=== PATIENT | male | born 1935 | race Caucasian/White ===

== ENCOUNTER → 2016-11-14 | Outpatient (CLI) | payer MEDICARE, OTHER ==
[~2016-11-14] MED LIST: ALLO300T2 PO; ALLP100T PO; ASP81CT PO; CALC-80 PO; CHLORTAB PO; CHOL400T29 PO; DIAZ10TA3 PO; DICY20TA10 PO; DIET75TA; DOCU100T7 PO; GFN600TCR PO; GLUC1TAB27 PO; HYDR-757 PO; HYDR118S PO; HYDR28.480 TP; LEVO25TA5 PO; MELA1TAB11 PO; MENT200L TP; METO-354 PO; MULT1CAP27 PO; NAPR550T PO; OMEG1CAP24 PO; OMEP-10 PO; OMEP20TA2 PO; PANT40TA PO; PRM25T PO; PROP1TAB77 PO; TRAM50TA2 PO; UBID100C8 PO; VITA1CAP59 PO; [UNRECOGNIZED DRUG - OTHER]; acetaminophen 500mg PO
[2016-11-14 14:43] LABS: BASOPHILS # (AUTO) 0.1 10^3/uL (0.0-0.1); BASOPHILS % (AUTO) 3 % (0-10); EOSINOPHILS # (AUTO) 0.2 10^3/uL (0.0-0.3); EOSINOPHILS % (AUTO) 4 % (0-10); LYMPHOCYTES # (AUTO) 1.4 X 10^3 (1.0-4.0); LYMPHOCYTES % (AUTO) 36 % (12-44); MEAN CORPUSCULAR HEMOGLOBIN 28 PG (25-34); MEAN CORPUSCULAR HGB CONC 32 G/DL (32-36); MEAN CORPUSCULAR VOLUME 87 FL (80-99); MEAN PLATELET VOLUME 11.8 FL (7.4-10.4); MONOCYTES # (AUTO) 0.6 X 10^3 (0.0-1.0); MONOCYTES % (AUTO) 16 % (0-12); NEUTROPHILS # (AUTO) 1.6 X 10^3 (1.8-7.8); NEUTROPHILS % (AUTO) 41 % (42-75); PLATELET COUNT 119 10^3/uL (130-400); RED BLOOD COUNT 5.09 10^6/uL (4.35-5.85); RED CELL DISTRIBUTION WIDTH 16.7 % (10.0-14.5); WHITE BLOOD COUNT 3.9 10^3/uL (4.3-11.0)
[2016-11-14 15:05] LABS: ALBUMIN 4.2 G/DL (3.2-4.5); BILIRUBIN,TOTAL 0.9 MG/DL (0.1-1.0); CALCIUM 9.2 MG/DL (8.5-10.1); CREATININE SERUM 1.28 MG/DL (0.60-1.30); POTASSIUM 4.1 MMOL/L (3.6-5.0); TOTAL PROTEIN 6.8 G/DL (6.4-8.2)
[2016-11-14 15:24] LABS: THYROID STIMULATING HORMONE 3.04 UIU/ML (0.35-4.94)
== END ==
LOC: LAB 14:21
DX: Z00.00 Encounter for general adult medical examination without abnormal findings (principal); E03.9 Hypothyroidism, unspecified; E78.1 Pure hyperglyceridemia
CPT/HCPCS: 36415; 80053; 80061; 84443; 85025

== ENCOUNTER → 2018-07-26 | Outpatient (CLI) | payer MEDICARE, OTHER ==
[~2018-07-26] MED LIST changes: +HYDR-4226 PO; -HYDR-757 PO; +NAPR-1070 PO; -NAPR550T PO; +PANT40SU PO
--- NOTE | 2018-07-26 14:56 | Diagnostic Imaging Report ---
PROCEDURE: CT abdomen and pelvis without contrast. TECHNIQUE: Multiple contiguous axial images were obtained through the abdomen and pelvis without the use of intravenous contrast. INDICATION: Left lower quadrant pain. COMPARISON: Correlation is made with prior CT from 02/21/2013. FINDINGS: The lung bases are clear apart from calcified granuloma in the left lower lobe posteriorly. No discrete liver mass is identified. The gallbladder is unremarkable. No biliary ductal dilatation is seen. The pancreas and spleen are unremarkable. No adrenal mass is detected. Low-attenuation lesions in both kidneys are seen, suggestive of cysts. The larger lesion in the lower pole of the left kidney has significantly decreased in size since CT from 2012. There is a slightly hyperdense cortical lesion in the left kidney lower pole medially measuring approximately 12 mm. This was not seen on prior exam. This could represent a small hemorrhagic cyst, but solid lesion cannot be entirely excluded. No calculi or hydronephrosis is identified. The aorta is calcified but nonaneurysmal. The colon does demonstrate a large amount of stool consistent with constipation. There is diverticula of the sigmoid but no evidence of acute diverticulitis. Small bowel is nondilated. There is no ascites. Unopacified urinary bladder does demonstrate some wall thickening, particularly on the right side of the urinary bladder near the dome. A bladder mass cannot be entirely excluded. Prostate is unremarkable. No pelvic lymphadenopathy is seen. IMPRESSION: 1. Features suggestive of constipation. 2. Bilateral renal cysts. There is also a 12 mm hyperdensity in the left kidney, indeterminate between a hemorrhagic versus a solid renal lesion. Continued followup is recommended to confirm stability. 3. Wall thickening of the urinary bladder on the right side. Bladder neoplasm cannot be excluded, and cystoscopy would be useful for further evaluation. 4. Uncomplicated sigmoid diverticulosis. Dictated by: Dictated on workstation # [id number]
== END ==
LOC: RAD 14:12
PROVIDERS: ATTEND Internal Medicine
DX: N28.1 Cyst of kidney, acquired (principal); N32.89 Other specified disorders of bladder; K57.30 Diverticulosis of large intestine without perforation or abscess without bleeding
CPT/HCPCS: 74176

== ENCOUNTER 2018-08-19 13:12 | Outpatient (RCR) | payer MEDICARE, OTHER ==
[2018-07-28 17:12] LABS: BASOPHILS # (AUTO) 0.1 10^3/uL (0.0-0.1); BASOPHILS % (AUTO) 1 % (0-10); EOSINOPHILS # (AUTO) 0.2 10^3/uL (0.0-0.3); EOSINOPHILS % (AUTO) 2 % (0-10); HEMATOCRIT 33 % (40-54); LYMPHOCYTES # (AUTO) 1.7 X 10^3 (1.0-4.0); LYMPHOCYTES % (AUTO) 23 % (12-44); MEAN CORPUSCULAR HEMOGLOBIN 29 PG (25-34); MEAN CORPUSCULAR HGB CONC 30 G/DL (32-36); MEAN CORPUSCULAR VOLUME 96 FL (80-99); MEAN PLATELET VOLUME 12.3 FL (7.4-10.4); MONOCYTES # (AUTO) 0.2 X 10^3 (0.0-1.0); MONOCYTES % (AUTO) 2 % (0-12); NEUTROPHILS # (AUTO) 5.3 X 10^3 (1.8-7.8); NEUTROPHILS % (AUTO) 72 % (42-75); PLATELET COUNT 120 10^3/uL (130-400); RED CELL DISTRIBUTION WIDTH 16.2 % (10.0-14.5); WHITE BLOOD COUNT 7.3 10^3/uL (4.3-11.0)
[2018-07-28 17:36] LABS: ALANINE AMINOTRANSFERASE 11 U/L (0-55); ALBUMIN 4.2 GM/DL (3.2-4.5); ALKALINE PHOSPHATASE 74 U/L (40-136); BUN/CREATININE RATIO 17; CARBON DIOXIDE 23 MMOL/L (21-32); CHLORIDE 108 MMOL/L (98-107); CREATININE SERUM 1.14 MG/DL (0.60-1.30); GFR ESTIMATED > 60; GLUCOSE 105 MG/DL (70-105); POTASSIUM 3.5 MMOL/L (3.6-5.0); SODIUM 141 MMOL/L (135-145); TOTAL PROTEIN 6.8 GM/DL (6.4-8.2)
[2018-07-28 19:05] LABS: BAND NEUTROPHILS 0 %; BASOPHILS % (MANUAL) 0 %; EOSINOPHILS % (MANUAL) 1 %; LYMPHOCYTES % (MANUAL) 21 %; MONOCYTES % (MANUAL) 2 %; NEUTROPHILS % (MANUAL) 76 %
[2018-07-28 19:06] LABS: HYPOCHROMASIA MODERATE; POIKILOCYTOSIS SLIGHT; STOMATOCYTES SLIGHT
== END 2018-10-26 | disposition home or self-care (01) ==
LOC: ONC 13:12
PROVIDERS: ATTEND Internal Medicine Hematology & Oncology
DX: D64.9 Anemia, unspecified (principal); D69.6 Thrombocytopenia, unspecified; N28.9 Disorder of kidney and ureter, unspecified; N32.9 Bladder disorder, unspecified; S22.080A Wedge compression fracture of T11-T12 vertebra, initial encounter for closed fracture; M43.16 Spondylolisthesis, lumbar region; M47.816 Spondylosis without myelopathy or radiculopathy, lumbar region; W19.XXXA Unspecified fall, initial encounter
CPT/HCPCS: 72100; 80053; 82607; 82728; 82746; 83540; 85007; 85025; 85027; 88184; 88185; 88368; 88369; 88377; 99213; 99214

== ENCOUNTER → 2018-08-19 | Outpatient (CLI) | payer MEDICARE, OTHER ==
--- NOTE | 2018-08-19 21:15 | Diagnostic Imaging Report ---
INDICATION: Back pain following a fall sustained 3 weeks ago. No previous for direct comparison; however, the study correlated with abdominopelvic CT that includes sagittal and coronal reconstructions that dated 07/26/2008. FINDINGS: Mid third vertebral body compression fracture at T12 showed no progression from previous CT. Lumbar statures are stable and within normal limits. Grade 1 degenerative retrolistheses of L1 on L2, L2 on L3 and L3 on L4 stable from prior. There is pancolonic constipation similar in magnitude to what is present on the earlier CT. IMPRESSION: Stable compression of the central T12 vertebral body. No lumbar fracture. Stable multilevel grade 1 degenerative listhesis, spondylosis and facet arthrosis with chronic or recurrent colonic constipation. Dictated by: Dictated on workstation # [id number]
== END ==
LOC: RAD 14:16
PROVIDERS: ATTEND Internal Medicine
DX: S22.080A Wedge compression fracture of T11-T12 vertebra, initial encounter for closed fracture (principal); M43.16 Spondylolisthesis, lumbar region; M47.816 Spondylosis without myelopathy or radiculopathy, lumbar region; W19.XXXA Unspecified fall, initial encounter
CPT/HCPCS: 72100

== ENCOUNTER 2019-09-01 20:14 | Inpatient (IN) | payer MEDICARE, OTHER ==
[~2019-09-01] VITALS: Ht 180.3 cm; Wt 56.6 kg
[2019-09-01] MEDS ORDERED: LACTATED RINGERS 1,000 ML IV ONE ×2 (20:55→21:17)
[2019-09-01 21:25] LABS: HEMATOCRIT 33 % (40-54); MEAN CORPUSCULAR HEMOGLOBIN 37 PG (25-34); MEAN CORPUSCULAR HGB CONC 31 G/DL (32-36); MEAN CORPUSCULAR VOLUME 120 FL (80-99); MEAN PLATELET VOLUME 11.9 FL (7.4-10.4); RED CELL DISTRIBUTION WIDTH 18.6 % (10.0-14.5)
[2019-09-01 21:28] LABS: PLATELET COUNT 19 10^3/uL (130-400); WHITE BLOOD COUNT 64.2 10^3/uL (4.3-11.0)
--- NOTE | 2019-09-01 21:29 | ED General ---
General Chief Complaint: Trauma-Non Activation Stated Complaint: FELL/BACK PAIN Source of Information: Patient, Family (daughter) Exam Limitations: Other (poor historian) (BILLIE STAPLETON) History of Present Illness Date Seen by Provider: Sep 01, 2019 Time Seen by Provider: 20:20 Initial Comments pt is an 84 y/o male who presents to the ED S/P fall some time today. He was found by daughter on the floor in his trailer where he lives. He says he lost his balance while reaching over his chair for the light switch, causing him to fall. Denies LOC or hitting his head, or any other injury from the fall. He does complain of mild back pain but does report hx of chronic back pain; pt cannot seem to tell whether current back pain is different from his chronic back pain. Daughter gave him Tylenol PANTS BUSHELER (~1900) for back pain. Pt denies CP, lightheadedness, cough, UTI sx, any new incontinence, or neurological sx. Per daughter, pt's BP usually runs low in the 100s-90s/70s-60s. Pt states he does not take his medicine regularly, only takes them when he "needs to". He is not on any anticoagulants. Pt lives alone in his trailer and per daughter, he is not able to take care of himself well, is not able to shower by himself, does not keep hydrated, and does not eat well. Per daughter, pt has been showing progressive sx of dementia over the past few years and has recently been having hallucinations as well; as such, pt is a poor historian. Timing/Duration: Other ("Few hrs") Modifying Factors: improves with Other (back pain is better with rest) Associated Systoms: No Chest Pain, No Cough, No Diaphoresis, No Fever/Chills, No Nausea/Vomiting, No Shortness of Air, No Syncope; Weakness (BILLIE STAPLETON) Allergies and Home Medications Allergies Coded Allergies: propoxyphene (Unverified Adverse Reaction, Intermediate, N/V, DIZZINESS, 03/17/10) Home Medications Acetaminophen 500 Mg Tablet, 500-1,000 MG PO Q4H PRN for PAIN-MILD (1-4), (Reported) Melatonin 5 Mg Tablet, 5 MG PO HS, (Reported) Tamsulosin HCl 0.4 Mg Cap, 0.4 MG PO HS, (Reported) LAST FILLED #30 05-24-19 Patient Home Medication List Home Medication List Reviewed: Yes (DILLAN MURGUIA MD) Review of Systems Review of Systems Constitutional: No chills, No diaphoresis, No fever; weakness Respiratory: No cough, No dyspnea on exertion Cardiovascular: No chest pain, No palpitations Gastrointestinal: No abdominal pain, No constipation; diarrhea (chronic); No nausea, No vomiting Genitourinary: No dysuria, No frequency; incontinence (intermittent) Musculoskeletal: back pain Skin: dryness; No rash (BILLIE STAPLETON) All Other Systems Reviewed Negative Unless Noted: Yes (DILLAN MURGUIA MD) Past Fcqqexa-Zumzro-Sdfymc Hx Past Med/Social Hx: Reviewed Nursing Past Med/Soc Hx (DILLAN MURGUIA MD) Patient Social History Recent Foreign Travel: No (N) Contact w/Someone Who Travel: No Recent Hopitalizations: No (BILLIE STAPLETON) Immunizations Up To Date Tetanus Booster (TDap): Unknown (BILLIE STAPLETON [employer]) Past Medical History Surgeries: Yes (HERNIA, polyp removed from escophagus) Respiratory: No Currently Using CPAP: No Currently Using BIPAP: No Cardiac: Yes (leaky valve) Coronary Artery Disease, High Cholesterol Neurological: No Reproductive Disorders: No Sexually Transmitted Disease: No HIV/AIDS: No Genitourinary: No Gastrointestinal: Yes ( diverticulosis, hiatal hernia) Musculoskeletal: Yes (gout) Gout Endocrine: No Hypothyroidsim HEENT: Yes Cataract Hearing Impairment: Hard of Hearing Cancer: No Psychosocial: No Integumentary: No Blood Disorders: No (BILLIE STAPLETON [facility]) Family Medical History Reviewed Nursing Family Hx (DILLAN MURGUIA MD) No Pertinent Family Hx (BILLIE STAPLETON) Physical Exam-Suspected Sepsis Physical Exam Vital Signs Vital Signs - First Documented 09/02/19 09/02/19 09/02/19 01:00 01:03 01:30 Temp 36.4 Pulse 62 Resp 16 B/P (MAP) 107/55 (72) Pulse Ox 100 O2 Delivery Room Air O2 Flow Rate 100.00 (DILLAN MURGUIA MD) Vital Signs Capillary Refill : (BILLIE STAPLETON [facility]) Height, Weight, BMI Height: 6'0.00" Weight: 190lbs. 9.0oz. 86.622014pa; 24.6 BMI Method:Stated General Appearance: No Apparent Distress, WD/WN, Thin, Other (temporal muscle wasting, discheveled, greasy hair, pleasent) HEENT: PERRL/EOMI, TMs Normal, Normal ENT Inspection, Pharynx Normal Neck: Normal Inspection, Non Tender Respiratory: Chest Non Tender, Lungs Clear, Normal Breath Sounds, No Accessory Muscle Use, No Respiratory Distress Cardiovascular: Regular Rate, Rhythm, No Edema, No Gallop, No JVD, No Murmur Gastrointestinal: Non Tender, Soft Back: No CVA Tenderness, Other (mild TTP of SP of lower lumbar vertabrae) Extremity: Normal Capillary Refill, Non Tender, No Calf Tenderness, No Pedal Edema, Other (chronic skin discolouration to bilateral feet, evidence of onychomycosis, and scaling skin on forefoot and in between toes) Neurologic/Psychiatric: Alert, Oriented x3 Lymphatic: No Adenopathy (BILLIE STAPLETON [facility]) General Appearance: No Apparent Distress, Chronically ill, Thin Respiratory: Lungs Clear, Normal Breath Sounds Cardiovascular: Regular Rate, Rhythm, No Murmur Gastrointestinal: Normal Bowel Sounds, Non Tender, Soft Back: No CVA Tenderness, No Vertebral Tenderness Extremity: Non Tender, No Calf Tenderness Neurologic/Psychiatric: Alert, Oriented x3 Skin: normal color, warm/dry (DILLAN MURGUIA MD) Focused Exam Lactate Level (DILLAN MURGUIA MD) Lactic Acid Level (DILLAN MURGUIA MD) Progress/Results/Core Measures Suspected Sepsis SIRS Temperature: Pulse: Respiratory Rate: Laboratory Tests 09/01/19 21:16: White Blood Count 64.2*H Blood Pressure / Mean: 09/01/19 21:16: Lactic Acid Level 3.98*H Laboratory Tests 09/01/19 21:16: Creatinine 3.23H, INR Comment 1.5H, Platelet Count 19*L, Total Bilirubin 0.6 (BILLIE STAPLETON [facility]) Results/Orders Lab Results (DILLAN MURGUIA MD) Micro Results (DILLAN MURGUIA MD) My Orders Orders - DILLAN MURGUIA MD [facility] Tech Ed (09/01/19 ) (DILLAN MURGUIA MD) Medications Given in ED (DILLAN MURGUIA MD) Vital Signs/I&O (DILLAN MURGUIA MD) Vital Signs/I&O [facility]ill : [facility] Progress Note : Time: 20:22 Progress Note Seen and evaluated. Noted to have low BP in 100-90s/50-40s with low O2 sat. O2 stat maintained on NC, ordered 2L of LR, sepsis work-up. @2127: Was notified by lab that pt's WBC was 64.2 and plt 19. Per EMR. pt has seen Dr. Melvin back in 2019, and flow cytometry on blood sample showed small population of circulating myeloblasts with subtle atypical features of granulocytic precursors which did not exclude a primary marrow d/o. spoke to daughter regarding further f/u w/ Dr. Melvin; she states her dad decided not to f/u for a Bone marrow Bx. Daughter reports hx of leukemia in paternal grandfather. [facility] Progress Note : Progress Note Have seen and evaluated the patient and agree with above except as indicated. I have directed the plan of care. Patient is here with increasing weakness. White count grossly elevated. We will initiate sepsis workup plus CT of the head. Does have history of abnormal cells last year that was not followed up on. Patient has long history of not following up. LR 2 L bolus ordered which exceeds 30 mL/kg IV. He did have initial hypotension that has not persisted. We are pending UA. 2310: UA obtained and is pending. 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 Formal path review has been ordered to determine type. All findings concerns were discussed with the patient and family. I did inform the family of the severity of the illness. Patient to be admitted. Pending UA and determination of need for antibiotics. Monitor patient. 2340: UTI noted that is nitrite positive. Rocephin 1 g IV ordered. I did discuss the case with Dr. Coleman, on-call for [facility]. She accepts patient for admission, inpatient status. We will go to cardiac step down. Patient's blood pressure is improved nicely with IV fluids. 0005: I have discussed at length with the patient and family regarding findings and concerns and he agrees to admission. I attest to focused exam at this time. Blood pressure 100 over 60s systolic and patient is mentating better. O2 sat 100% on room air. (DILLAN MURGUIA MD) ECG Initial ECG Impression Date: Sep 01, 2019 Initial ECG Impression Time: 22:37 Initial ECG Rate: 64 Comment Multiple attempts to get EKG without significant artifact. Patient does have artifact on this EKG. Computer read shows atrial fibrillation although I think there is P waves noted in the lateral leads and this is sinus with low voltage P waves. Leftward axis. No evidence of ST elevation WI. Similar to previous of 01/10/17. Interpreted by me. (DILLAN MURGUIA MD) Diagnostic Imaging Diagonstic Imaging: Xray, CT Plain Films/CT/US/NM/MRI: chest, c-spine, head Comments [facility]. [place], [place] NAME: JOSHUA HARVEY [facility] REC#: [id number] PT STATUS: REG ER : 1935 PHYSICIAN: DILLAN MURGUIA MD ADMIT DATE: 09/01/19/ER Date of Exam:09/01/19 CT HEAD/CERVICAL SPINE WO PROCEDURE: CT head and CT cervical spine without contrast. TECHNIQUE: Multiple contiguous axial images were obtained through the brain and cervical spine without the use of intravenous contrast. Sagittal and coronal reformations through the cervical spine were then performed. Auto Exposure Controls were utilized during the CT exam to meet ALARA standards for radiation dose reduction. INDICATION: Fall with head and neck injury CT HEAD: CT images of the head were obtained. FINDINGS: Ventricles and sulci are within normal limits for size. There is no intracranial hemorrhage identified. There is no abnormal mass effect or shift of midline structures. IMPRESSION: Unremarkable CT of the head. CT cervical: There is diffuse cervical disc space narrowing with endplate spurring. No acute fracture is identified. There is no evidence of paraspinous hematoma. There is atherosclerotic calcification in the region of distal left vertebral artery and both internal carotid arteries. There is subcutaneous gas within the anterior chest wall of uncertain significance. IMPRESSION: No CT evidence of acute cervical spinal abnormality. Small amount of subcutaneous gas appear to be present within the visualized anterior chest wall just above the clavicles. Clinical correlation would be of use. Dictated on workstation # [id number] Dict: 09/01/192213 Trans: 09/01/192220 RIO [id number] Interpreted by: CARMELA HEWITT MD Electronically signed by: [facility] [place], [place] NAME: JOSHUA HARVEY [facility] REC#: [id number] PT STATUS: REG ER : 1935 PHYSICIAN: DILLAN MURGUIA MD ADMIT DATE: 09/01/19/ER Date of Exam:09/01/19 CHEST 1 VIEW, AP/PA ONLY INDICATION: Hypotension and fall Upright portable AP view of the chest is obtained. Comparison is made study of 01/10/2017. There is air trapping bilaterally. No pneumothorax or consolidation is identified. There may be slight right perihilar atelectasis. IMPRESSION: Background emphysema with slight right perihilar atelectasis. Dictated by: Dictated on workstation # [id number] Dict: 09/01/192215 Trans: 09/01/192226 RIO [id number] Interpreted by: CARMELA HEWITT MD Electronically signed by: CARMELA HEWITT MD 09/01/192226 [facility] Reviewed: Reviewed by Me (DILLAN MURGUIA MD) Departure Communication (Admissions) Time/Spoke to Admitting Phy: 23:40 (DILLAN MURGUIA MD) Impression Primary Impression: Severe sepsis Additional Impressions: UTI (urinary tract infection) Qualified Codes: N30.00 - Acute cystitis without hematuria Acute renal failure Qualified Codes: N17.9 - Acute kidney failure, unspecified Leukocytosis Qualified Codes: D72.829 - Elevated white blood cell count, unspecified Thrombocytopenia Disposition: 09 ADMITTED INPATIENT Condition: Stable Admissions Decision to Admit Reason: Admit from ER (General) Decision to Admit/Date: Sep 01, 2019 Time/Decision to Admit Time: 23:40 (DILLAN MURGUIA MD) Departure-Patient Inst. Referrals: YANICK AGEE MD (PCP/Family) Primary Care Physician BILLIE STAPLETON [facility] Sep 01, 2019 21:29 DILLAN MURGUIA MD Sep 01, 2019 23:18
[2019-09-01 21:38] LABS: INR 1.5 (0.8-1.4); PROTHROMBIN TIME PATIENT 18.3 SEC (12.2-14.7)
[2019-09-01 21:46] LABS: BILIRUBIN,TOTAL 0.6 MG/DL (0.1-1.0); CALCIUM 8.8 MG/DL (8.5-10.1); CREATININE SERUM 3.23 MG/DL (0.60-1.30); POTASSIUM 5.6 MMOL/L (3.6-5.0); TOTAL PROTEIN 6.5 GM/DL (6.4-8.2)
--- NOTE | 2019-09-01 22:21 | Diagnostic Imaging Report ---
PROCEDURE: CT head and CT cervical spine without contrast. TECHNIQUE: Multiple contiguous axial images were obtained through the brain and cervical spine without the use of intravenous contrast. Sagittal and coronal reformations through the cervical spine were then performed. Auto Exposure Controls were utilized during the CT exam to meet ALARA standards for radiation dose reduction. INDICATION: Fall with head and neck injury CT HEAD: CT images of the head were obtained. FINDINGS: Ventricles and sulci are within normal limits for size. There is no intracranial hemorrhage identified. There is no abnormal mass effect or shift of midline structures. IMPRESSION: Unremarkable CT of the head. CT cervical: There is diffuse cervical disc space narrowing with endplate spurring. No acute fracture is identified. There is no evidence of paraspinous hematoma. There is atherosclerotic calcification in the region of distal left vertebral artery and both internal carotid arteries. There is subcutaneous gas within the anterior chest wall of uncertain significance. IMPRESSION: No CT evidence of acute cervical spinal abnormality. Small amount of subcutaneous gas appear to be present within the visualized anterior chest wall just above the clavicles. Clinical correlation would be of use. Dictated by: Dictated on workstation # [id number]
[2019-09-01 22:23] LABS: BAND NEUTROPHILS 8 %; METAMYELOCYTES % 4 %; MONOCYTES % (MANUAL) 16 %; MYELOCYTES % 5 %; NEUTROPHILS % (MANUAL) 59 %
[2019-09-01 22:24] LABS: ANISOCYTOSIS MODERATE; ATYPICAL LYMPHOCYTES 1 %; BLAST CELLS 3 %; MICROCYTOSIS SLIGHT; POIKILOCYTOSIS SLIGHT; POLYCHROMASIA SLIGHT; PROMYELOCYTES % 4 %; SPHEROCYTES SLIGHT; TOXIC GRANULATION/VACUOLAZATIO 3+
--- NOTE | 2019-09-01 22:26 | Diagnostic Imaging Report ---
INDICATION: Hypotension and fall Upright portable AP view of the chest is obtained. Comparison is made study of 01/10/2017. There is air trapping bilaterally. No pneumothorax or consolidation is identified. There may be slight right perihilar atelectasis. IMPRESSION: Background emphysema with slight right perihilar atelectasis. Dictated by: Dictated on workstation # [id number]
[2019-09-01 22:45] LABS: ABSOLUTE RETIC # 58 10e9/L (24-90); RETICULOCYTE % 2.15 % (0.50-2.40)
[2019-09-01 23:13] LABS: BILIRUBIN,URINE NEGATIVE (NEGATIVE); CLARITY,URINE CLOUDY; COLOR,URINE YELLOW; GLUCOSE, URINE (UA) NEGATIVE (NEGATIVE); KETONES,URINE TRACE (NEGATIVE); LEUKOCYTE ESTERASE ,URINE 2+ (NEGATIVE); NITRITE,URINE POSITIVE (NEGATIVE); PH,URINE 5.5 (5-9); PROTEIN,URINE 2+ (NEGATIVE)
[2019-09-01 23:21] LABS: BACTERIA,URINE LARGE /HPF; SQUAMOUS EPITHELIAL CELL,UR RARE /HPF; WBC,URINE >100 /HPF
[2019-09-01] MEDS ORDERED: cefTRIAXone FOR IV USE 1,000 MG in WATER (STERILE) FOR INJECTION 10 ML IV ONE (23:30)
[2019-09-02] VITALS (15 sets, daily range): BP systolic 92–137; BP diastolic 45–94
[2019-09-02] MEDS ORDERED: LACTATED RINGERS 1,000 ML IV ONE (01:06)
[2019-09-02] MEDS: LACTATED RINGERS 1,000 ML IV SCH ×4 (01:10→21:48)
[2019-09-02 02:58] LABS: HEMATOCRIT 27 % (40-54); HEMOGLOBIN 8.1 G/DL (13.3-17.7); MEAN CORPUSCULAR HEMOGLOBIN 37 PG (25-34); MEAN CORPUSCULAR HGB CONC 31 G/DL (32-36); MEAN CORPUSCULAR VOLUME 120 FL (80-99); MEAN PLATELET VOLUME 10.9 FL (7.4-10.4); RED CELL DISTRIBUTION WIDTH 18.3 % (10.0-14.5)
[2019-09-02 03:00] LABS: PLATELET COUNT 13 10^3/uL (130-400); WHITE BLOOD COUNT 52.5 10^3/uL (4.3-11.0)
[2019-09-02 03:09] LABS: ALBUMIN 3.3 GM/DL (3.2-4.5); BILIRUBIN,TOTAL 0.4 MG/DL (0.1-1.0); CALCIUM 8.2 MG/DL (8.5-10.1); CREATININE SERUM 2.74 MG/DL (0.60-1.30); TOTAL PROTEIN 5.5 GM/DL (6.4-8.2)
[2019-09-02] MEDS ORDERED: ONDANSETRON 4 MG/2 ML (SDV) Z0FRAN IV PRN (04:00)
[2019-09-02] MEDS ORDERED: ACET-2267 PO (11:07)
[2019-09-02] MEDS ORDERED: MELA5TAB14 PO (11:07)
[2019-09-02] MEDS ORDERED: TMSL.4C PO (11:07)
--- NOTE | 2019-09-02 11:09 | NUR ---
SPOKE WITH THE PATIENT ABOUT HIS MEDICATIONS. HIS FAMILY STATES HE USES [facility]: [facility] FLOMAX 0.4MG DAILY #30 09-16-18 ALLOPURINOL 300MG DAILY #30 I LEFT THE FLOMAX ON THE MED REC AND NOTED THE PAST DUE FILL DATE BUT I REMOVED THE ALLOPURINOL SINCE IT IS SO PAST DUE. THE PHARMACIST AT [facility] SAYS HE COMES IN FREQUENTLY AND ASKS ABOUT SUPPLEMENTS BUT WHEN I ASKED HIM HE CAN NOT LIST ANY TO ME. HE STATES HE TAKES MELATONIN AT BEDTIME AND TYLENOL NEEDED. HE STATES THAT IS ALL HE TAKES ON A DAILY BASIS THAT HE CAN REMEMBER. I HAVE REMOVED ALL OTHER MEDICATIONS AT THIS TIME.
--- NOTE | 2019-09-02 13:09 | Physical Therapy Evaluation ---
PT Evaluation-General Medical Diagnosis Admission Date Sep 01, 2019 at 23:45 Medical Diagnosis: severe sepsis/UTI/leukocytosis/thrombocytopenia Onset Date: Sep 01, 2019 Therapy Diagnosis Therapy Diagnosis: debility/weakness Height/Weight Height (Feet): 6 Height (Inches): 0.00 Weight (Pounds): 190 Weight (Ounces): 9.0 Precautions Precautions/Isolations: Fall Prevention, Standard Precautions Weight Bear Status Right Lower Extremity: Right Weight Bearing/Tolerated Left Lower Extremity: Left Weight Bearing/Tolerated Referral Physician: Kit Reason for Referral: Evaluation/Treatment Medical History Pertinent Medical History: CAD, Hypothroidism Current History ER secondary to fall at home while reaching over chair for a light switch Reviewed History: Yes Social History Home: Single Level Current Living Status: Alone Entry Into Home: Stairs With Railing PT Steps Into Home: 3 Prior Prior Level of Function SCALE: Activities may be completed with or without assistive devices. 4-Lbyhyfwtah-feokhge completes the activity by him/herself with no assistance from a helper. 5-Set-up or Clean-up Assistance-helper sets up or cleans up; patient completes activity. [place] assists only prior to or following the activity. 4-Supervision or Touching Assistance-helper provides verbal cues and/or touching/steadying and/or contact guard assistance as patient completes activity. Assistance may be provided throughout the activity or intermittently. 3-Partial/Moderate Assistance-helper does LESS THAN HALF the effort. [place] lifts, holds or supports trunk or limbs, but provides less than half the effort. 2-Substantial/Maximal Assistance-helper does MORE THAN HALF the effort. [place] lifts or holds trunk or limbs and provides more than half the effort. 5-Xwanfcmzb-uokqtk does ALL the effort. Patient does none of the effort to complete the activity. Or, the assistance of 2 or more helpers is required for the patient to complete the activity. If activity was not attempted, code reason: 7-Patient Refused. 9-Not Applicable-not attempted and the patient did not perform the activity before the current illness, exacerbation or injury. 10-Not Attempted due to Environmental Limitations-(lack of equipment, weather restraints, etc.). 88-Not Attempted due to Medical Conditions or Safety Concerns. Bed Mobility: 6 Transfers (B,C,W/C): 6 Gait: 6 Stairs: 6 Indoor Mobility (Ambulation): Independent Stairs: Independent Prior Devices Use: None per family, unable to utilize AD due to clutter in home PT Evaluation-Current Subjective Patient agrees to PT. Family present. Pain Numeric Pain Scale: 0-No Pain Location: No Pain Reported Objective Patient Orientation: Confused Attachments: Rivera Catheter, IV ROM/Strength ROM Lower Extremities bilateral LE WFL Strength Lower Extremities 3+/5 grossly bilateral LE Integumentary/Posture Integumentary refer to nursing notes Bladder Incontinence: Rivera Cath Posture severely kyphotic Neuromuscular (Tone, Coordination, Reflexes) grossly intact Sensory Vision: Wears Glasses Hearing: Impaired Sensation Right Lower Extremit: Intact Sensation Left Lower Extremity: Intact Transfers Roll Left to Right (QC): 5 Sit to Lying (QC): 5 Lying to Sitting/Side of Bed(Q: 5 Sit to Stand (QC): 5 Chair/Qqx-ze-Znwsy Xfer(QC): 5 Gait Does the Patient Walk?: Yes Mode of Locomotion: Walk Anticipated Mode of Locomotion: Walk Walk 10 feet (QC): 5 Walk 50 ft with 2 Turns(QC): 5 Walk 150 ft (QC): 5 Distance: 500' Gait Assistive Device: FWW Comments/Gait Description fast pace, functional gait sequence Balance Sitting Static: Normal Sitting Dynamic: Normal Standing Static: Good Standing Dynamic: Good Assessment/Needs 84 y.o. male, will be seen short term by skilled PT to address functional strength and mobility to improve current LOF to safely return to home or care facility at maximum LOF. Rehab Potential: Fair PT [facility] Goals [facility] Goals PT Advisor Consultant Goals Time Frame: Sep 17, 2019 Roll Left & Right (QC): 6 Sit to Lying (QC): 6 Lying-Sitting on Side/Bed(QC): 6 Sit to Stand (QC): 6 Chair/Twj-lc-Qcmcy Xfer(QC): 6 Toilet Transfer (QC): 6 Car Transfer (QC): 6 Walk 10 feet (QC): 6 Walk 50ft with 2 Turns (QC): 6 Walk 150 ft (QC): 6 Walking 10ft on Uneven Surface: 6 1 Step (curb) (QC): 6 PT Plan Problem List Problem List: Activity Tolerance, Functional Strength, Safety, Balance, Gait, Transfer, Bed Mobility Treatment/Plan Treatment Plan: Continue Plan of Care Treatment Plan: Bed Mobility, Education, Functional Activity Gunjan, Functional Strength, Gait, Safety, Therapeutic Exercise, Transfers Treatment Duration: Sep 17, 2019 Frequency: 5 times per week Estimated Hrs Per Day: .25 hour per day Patient and/or Family Agrees t: Yes Safety Risks/Education Patient Education: Gait Training Teaching Recipient: Patient Teaching Methods: Demonstration, Discussion Response to Teaching: Verbalize Understanding, Return Demonstration, Reinforcement Needed Discharge Recommendations Therapy Discharge Recommendati: Other, See Comments (snf facility) Time/GCodes Time In: 1225 Time Out: 1246 Total Billed Treatment Time: 21 Total Billed Treatment 1 visit EVMod 21 min OG TRAN PT Sep 02, 2019 13:09
--- NOTE | 2019-09-02 15:24 | NUR ---
CM/SS visited with the patient for social service consult. The patient and his two daughters were present in the room. The patient was very pleasant to talk with. The patient did easily get off topic when talking. 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 The patient believes his home is good and he is doing well on his own. His daughters stated he is a hoarder, doesn't eat or drink, doesn't shower, and isolates himself. The patient is willing to go into a [facility] for a period of time. The patient was provided with a [facility] preference form. The patient and his daughters all decided on [facility]. CM/SS called and sent a referral to the facility. Awaiting approval and acceptance.
--- NOTE | 2019-09-02 18:14 | Consultation ---
History of Present Illness History of Present Illness Patient Consulted On(rosa isela/time) 09/02/19 18:06 Date Seen by Provider: Sep 02, 2019 Time Seen by Provider: 18:10 History of Present Illness Mr. Espinoza is an 84 yo male with gout, dyslipidemia and hypothyroidism who was admitted last night with urinary tract infection and lactic acidosis. He was found down in his trailer by one of his daughters for possibly up to two hours. Patient is a poor historian and the daughter that is with him today reports the patient's family has been suspicious of dementia for some years now. He was found to have severe leukocytosis (>60,000/ul), progressive anemia and severe thrombocytopenia (19,000/ul) on admission. Patient was actually seen in hematology clinic last July for severe rapid weight loss and mild blood abnormalities, but he was focused so much on his back pain at the time that he declined bone marrow biopsy, and he was lost to follow up. When speaking with the patient, he perseverates about his back problems although he denies any major issues with his back currently. Allergies and Home Medications Allergies Coded Allergies: acetaminophen (Unverified Adverse Reaction, Intermediate, N/V, DIZZINESS, 03/17/10) propoxyphene (Unverified Adverse Reaction, Intermediate, N/V, DIZZINESS, 03/17/10) Home Medications Acetaminophen 500 Mg Tablet, 500-1,000 MG PO Q4H PRN for PAIN-MILD (1-4), (Reported) Melatonin 5 Mg Tablet, 5 MG PO HS, (Reported) Tamsulosin HCl 0.4 Mg Cap, 0.4 MG PO HS, (Reported) LAST FILLED #30 05-24-19 Patient Home Medication List Home Medication List Reviewed: Yes Past Oneiezm-Fgnsbn-Cpwazh Hx Past Med/Social Hx: Reviewed Nursing Past Med/Soc Hx Patient Social History Alcohol Use: Denies Use Recreational Drug Use: No Smoking Status: Never a Smoker Recent Foreign Travel: No Contact w/Someone Who Travel: No Recent Infectious Disease Expo: No Recent Hopitalizations: No Immunizations Up To Date Tetanus Booster (TDap): Unknown Past Medical History Surgeries: Yes (HERNIA, polyp removed from escophagus) Respiratory: No Currently Using CPAP: No Currently Using BIPAP: No Cardiac: Yes (leaky valve) Coronary Artery Disease, High Cholesterol Neurological: No Reproductive Disorders: No Sexually Transmitted Disease: No HIV/AIDS: No Genitourinary: No Gastrointestinal: Yes ( diverticulosis, hiatal hernia) Musculoskeletal: Yes (gout) Gout Endocrine: No Hypothyroidsim HEENT: Yes Cataract Hearing Impairment: Hard of Hearing Cancer: No Psychosocial: No Integumentary: No Blood Disorders: No Family Medical History Reviewed Nursing Family Hx No Pertinent Family Hx Review of Systems-General ROS-Unable to Obtain: see HPI, obtained some history from daughter Musculoskeletal: back pain Physical Exam-General Problems Physical Exam Vital Signs Vital Signs - First Documented 09/01/19 09/02/19 20:30 01:30 Temp 36.4 Pulse 74 Resp 17 B/P (MAP) 99/54 (69) Pulse Ox 98 O2 Delivery Room Air O2 Flow Rate 100.00 Capillary Refill : Less Than 3 Seconds General Appearance: WD/WN, no apparent distress, cachetic Eyes: Bilateral Eye Normal Inspection, Bilateral Eye EOMI HEENT: normal ENT inspection Neck: normal inspection Respiratory: chest non-tender, lungs clear, normal breath sounds Cardiovascular: regular rate, rhythm, no edema, no murmur Gastrointestinal: normal bowel sounds, non tender, soft Extremities: normal inspection, no pedal edema Neurologic/Psychiatric: no motor/sensory deficits, alert, normal mood/affect, disoriented x 3 Skin: normal color, warm/dry Lymphatic: no adenopathy Assessment/Plan Assessment/Plan Admission Diagnosis/Plan 84 yo male admitted to the hospital for urosepsis. He was found to have severe leukocytosis and severe thrombocytopenia. When he was worked up in Jul 2018, peripheral flow cytometry was positive for 3% myeloblasts. Currently, peripheral smear shows a number of erythroid morphologic abnormalities with a number of normal appearing granulocytic myeloid precursors including 3% blasts. There is a high suspicion for malignancy, likely myeloproliferative disease, but leukemia cannot be ruled out. These abnormal findings, including leukocytosis and thrombocytopenia, can also be found with sepsis, so I would adequately treat the UTI prior to obtaining a bone marrow biopsy. Platelets should be transfused if they fall to less than 11,000/ul. Otherwise no acute intervention for now. We will continue to follow. Dr. Negro is covering for the weekend. Clinical Quality Measures DVT/VTE Risk/Contraindication: Risk Factor Score Per Nursin RFS Level Per Nursing on Admit: 4+=Very High OFELIA COX MD Sep 02, 2019 18:14
--- NOTE | 2019-09-02 20:27 | History & Physical-Hospitalist ---
History of Present Illness HPI/Chief Complaint 84 yo male found on floor by his daughter- probable not down for longer than 2 hours . Has been having increased weakness and weight loss for some time . Was dx with possible leukemia but refused BM BX . Has been taking silver colloid for years. Has zaldivar increased urinary hesitancy . At the time of my interview has rambling thoughts and speech more eccentric than confused and denies complaint Source: patient, family Exam Limitations: no limitations Date Seen 09/02/19 Time Seen by a Provider: 09:33 Attending Physician Elaine Coleman DO PCP Salvador Gonzalez MD Referring Physician Date of Admission Sep 01, 2019 at 23:45 Home Medications & Allergies Home Medications Reviewed patient Home Medication Reconciliation performed by pharmacy medication reconciliations boiler/chiller technician and/or nursing. Patients Allergies have been reviewed. Allergies Allergies Coded Allergies propoxyphene (Unverified Adverse Reaction, Intermediate, N/V, DIZZINESS, 03/17/10) Past Cdjmjxu-Pojxsw-Qhlwzz Hx Past Med/Social Hx: Reviewed Nursing Past Med/Soc Hx Patient Social History Marrital Status: Employed/Student: retired Alcohol Use: Denies Use Recreational Drug Use: No Smoking Status: Never a Smoker Recent Foreign Travel: No Contact w/other who traveled: No Recent Hopitalizations: No Recent Infectious Disease Expo: No Immunizations Up To Date Tetanus Booster (TDap): Unknown Past Medical History Currently Using CPAP: No Currently Using BIPAP: No Cardiac: Coronary Artery Disease, High Cholesterol Reproductive: No Sexually Transmitted Disease: No HIV/AIDS: No Musculoskeletal: Gout Endocrine: Hypothyroidsim HEENT: Cataract Hearing Impairment: Hard of Hearing History of Blood Disorders: No Family History Reviewed Nursing Family Hx No Pertinent Family Hx Review of Systems Constitutional: see HPI EENTM: hearing loss Respiratory: no symptoms reported Cardiovascular: no symptoms reported Gastrointestinal: no symptoms reported Genitourinary: no symptoms reported Musculoskeletal: muscle pain Skin: dryness Psychiatric/Neurological: No Symptoms Reported Physical Exam Physical Exam Vital Signs Vital Signs - First Documented 09/01/19 09/02/19 20:30 01:30 Temp 36.4 Pulse 74 Resp 17 B/P (MAP) 99/54 (69) Pulse Ox 98 O2 Delivery Room Air O2 Flow Rate 100.00 Capillary Refill : Less Than 3 Seconds Height, Weight, BMI Height: 6'0.00" Weight: 190lbs. 9.0oz. 86.986477lf; 17.07 BMI Method:Stated General Appearance: Chronically ill, Cachetic HEENT: Normal ENT Inspection Neck: Limited Range of Motion Respiratory: Chest Non Tender, Lungs Clear, Normal Breath Sounds, No Accessory Muscle Use, No Respiratory Distress Cardiovascular: Regular Rate, Rhythm, No Gallop, Systolic Murmur Gastrointestinal: Normal Bowel Sounds, Non Tender, Soft Back: No CVA Tenderness Extremity: No Pedal Edema, Other (,erythrederma of feet, Nail beds with leal deposition of nail beds) Neurologic/Psychiatric: Alert, No Motor/Sensory Deficits, Normal Mood/Affect Skin: Pallor Results Results/Procedures Labs Laboratory Tests 09/05/19 06:33 09/06/19 05:57 Patient resulted labs reviewed. 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
[2019-09-02] MEDS: cefTRIAXone 1,000 MG/SWFI 10 ML IV PUSH IV SCH ×2 (20:51)
[2019-09-03] VITALS: BP 101/42
[2019-09-03 03:33] LABS: HEMATOCRIT 28 % (40-54); HEMOGLOBIN 8.7 G/DL (13.3-17.7); MEAN CORPUSCULAR HEMOGLOBIN 37 PG (25-34); MEAN CORPUSCULAR HGB CONC 31 G/DL (32-36); MEAN CORPUSCULAR VOLUME 119 FL (80-99); MEAN PLATELET VOLUME 11.4 FL (7.4-10.4); RED CELL DISTRIBUTION WIDTH 17.8 % (10.0-14.5)
[2019-09-03 03:39] LABS: WHITE BLOOD COUNT 48.5 10^3/uL (4.3-11.0)
[2019-09-03 03:40] LABS: PLATELET COUNT 15 10^3/uL (130-400)
[2019-09-03 03:43] LABS: INR 1.3 (0.8-1.4); PROTHROMBIN TIME PATIENT 16.9 SEC (12.2-14.7)
[2019-09-03 03:58] LABS: ALBUMIN 3.2 GM/DL (3.2-4.5); BILIRUBIN,TOTAL 0.4 MG/DL (0.1-1.0); CALCIUM 7.8 MG/DL (8.5-10.1); CREATININE SERUM 1.98 MG/DL (0.60-1.30); POTASSIUM 4.6 MMOL/L (3.6-5.0); TOTAL PROTEIN 5.2 GM/DL (6.4-8.2)
[2019-09-03 04:00] VITALS: BP 110/28
[2019-09-03] MEDS: LACTATED RINGERS 1,000 ML IV SCH (04:28)
[2019-09-03 07:54] VITALS: BP_SYST 143; BP_SYST 89; BP_DIAS 62; BP_DIAS 85
--- NOTE | 2019-09-03 11:12 | Progress Note - Hospitalist ---
Subjective HPI/CC On Admission Date Seen by Provider: Sep 03, 2019 Time Seen by Provider: 10:00 84 yo male found on floor by his daughter- probable not down for longer than 2 hours . Has been having increased weakness and weight loss for some time . Was dx with possible leukemia but refused BM BX . Has been taking silver colloid for years. Has zaldivar increased urinary hesitancy . At the time of my interview has rambling thoughts and speech more eccentric than confused and denies complaint Subjective/Events-last exam Patient ate a good breakfast this morning is awake and without complaint. Platelet count is 15,000 with an elevated MCV. Review of Systems Neurological: Weakness Focused Exam Lactate Level Objective Exam Vital Signs Vital Signs Date Time Temp Pulse Resp B/P (MAP) Pulse Ox O2 Delivery O2 Flow Rate FiO2 09/05/19 09:00 97 Room Air 09/05/19 08:00 37.1 102 18 118/59 (78) 09/02/19 09:00 100.00 Capillary Refill : Less Than 3 Seconds General Appearance: Chronically ill HEENT: Other (Temporal wasting) Neck: Non Tender, Supple Respiratory: Chest Non Tender, Lungs Clear, Normal Breath Sounds, No Accessory Muscle Use, No Respiratory Distress Cardiovascular: Regular Rate, Rhythm, No Gallop, Normal Peripheral Pulses, Systolic Murmur Gastrointestinal: Normal Bowel Sounds, Non Tender, Soft Rectal: Deferred Extremity: No Pedal Edema, Other (Erythroderma) Neurologic/Psychiatric: Alert, No Motor/Sensory Deficits, Normal Mood/Affect, Disoriented Skin: Pallor Results/Procedures Lab Laboratory Tests 09/05/19 06:33 Patient resulted labs reviewed. 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 Appreciate Dr. Melvin's consultation. Will transfuse if platelets drop below 11,000 there is any evidence of bleeding. 2. Urinary tract infection on Rocephin day 3 will DC Rivera catheter and increase activity 3. Cachexia 4. Renal insufficiency-improving Clinical Quality Measures DVT/VTE Risk/Contraindication: Risk Factor Score Per Nursin RFS Level Per Nursing on Admit: 4+=Very High JESSICA PACK MD Sep 03, 2019 11:12
[2019-09-03 12:55] VITALS: BP 94/69
--- NOTE | 2019-09-03 14:06 | NUR ---
Patient transferred to [facility] per RECLINER WITH CHAIR EXIT ALARM ON accompanied by STAKE SETTERDERRICK KHAN. Patient and family notified and understand transfer. Personal belongings with patient. Report given toT RN FROM STAKE SETTERDERRICK KHAN-- . PER REPORT PT IS VERY IMPULSIVE AND GETS UP QUICKLY -- ALARMS WILL BE ON -- STAFF IS AWARE
--- NOTE | 2019-09-03 14:11 | NUR ---
PT TO ROOM 414 VIA WC ACCOMPANIED BY THIS RN. ALL PERSONAL BELONGINGS SENT DOWN WITH PT. REPORT GIVEN TO CLEMENTE MEZA.
[2019-09-03 16:00] VITALS: BP 126/78
[2019-09-03 20:00] VITALS: BP 119/70
[2019-09-03] MEDS ORDERED: cefTRIAXone 1,000 MG IV (ROCEPHIN) VIAL ONE (20:18)
[2019-09-03] MEDS ORDERED: WATER (STERILE) FOR INJECTION 10 ML ONE (20:18)
[2019-09-03] MEDS: MELATONIN 3 MG TABLET PO SCH ×2 (21:00→21:19)
[2019-09-03] MEDS: TAMSULOSIN 0.4 MG (FLOMAX) CAP PO SCH (21:19)
[2019-09-03] MEDS: cefTRIAXone 1,000 MG/SWFI 10 ML IV PUSH IV SCH ×2 (21:19)
[2019-09-04] VITALS: BP 111/60
[2019-09-04 04:00] VITALS: BP 112/56
[2019-09-04 05:40] LABS: HEMATOCRIT 29 % (40-54); HEMOGLOBIN 8.7 G/DL (13.3-17.7); MEAN CORPUSCULAR HEMOGLOBIN 36 PG (25-34); MEAN CORPUSCULAR HGB CONC 30 G/DL (32-36); MEAN CORPUSCULAR VOLUME 119 FL (80-99); RED CELL DISTRIBUTION WIDTH 17.9 % (10.0-14.5)
[2019-09-04 05:43] LABS: PLATELET COUNT 14 10^3/uL (130-400)
[2019-09-04 06:01] LABS: ALBUMIN 3.3 GM/DL (3.2-4.5); BILIRUBIN,TOTAL 0.4 MG/DL (0.1-1.0); CALCIUM 7.9 MG/DL (8.5-10.1); CREATININE SERUM 1.75 MG/DL (0.60-1.30); POTASSIUM 4.5 MMOL/L (3.6-5.0); TOTAL PROTEIN 5.6 GM/DL (6.4-8.2)
[2019-09-04 07:54] VITALS: BP 120/67
--- NOTE | 2019-09-04 11:26 | Progress Note - Hospitalist ---
Subjective HPI/CC On Admission Date Seen by Provider: Sep 04, 2019 Time Seen by Provider: 11:30 84 yo male found on floor by his daughter- probable not down for longer than 2 hours . Has been having increased weakness and weight loss for some time . Was dx with possible leukemia but refused BM BX . Has been taking silver colloid for years. Has zaldivar increased urinary hesitancy . At the time of my interview has rambling thoughts and speech more eccentric than confused and denies complaint Subjective/Events-last exam Patient is looking stronger, still has rambling thoughts, agrees today to have a bone marrow biopsy Review of Systems Neurological: Weakness Focused Exam Lactate Level Objective Exam Vital Signs Vital Signs Date Time Temp Pulse Resp B/P (MAP) Pulse Ox O2 Delivery O2 Flow Rate FiO2 09/05/19 09:00 97 Room Air 09/05/19 08:00 37.1 102 18 118/59 (78) 09/02/19 09:00 100.00 Capillary Refill : Less Than 3 Seconds General Appearance: Chronically ill Neck: Supple Respiratory: Lungs Clear, Normal Breath Sounds, No Accessory Muscle Use, No Respiratory Distress Cardiovascular: Regular Rate, Rhythm, No Edema, No Gallop, No JVD Gastrointestinal: Normal Bowel Sounds, No Organomegaly, Non Tender, Soft Rectal: Deferred Back: Normal Inspection, No CVA Tenderness, No Vertebral Tenderness Extremity: No Pedal Edema Results/Procedures Lab Laboratory Tests 09/05/19 06:33 Patient resulted labs reviewed. 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 Appreciate Dr. Melvin's consultation. Will transfuse if platelets drop below 11,000 there is any evidence of bleeding. Patient agrees to a bone marrow biopsy 2. Urinary tract infection on Rocephin day 4 will DC Rivera catheter and increase activity 3. Cachexia 4. Renal hhwfkddqrctvs-rgpgsytno-yv 1.75 5. Weakness either longterm placement or rehabilitation 6. Silver colloid deposition of nail beds- Blood for heavy metals pending Clinical Quality Measures DVT/VTE Risk/Contraindication: Risk Factor Score Per Nursin RFS Level Per Nursing on Admit: 4+=Very High JESSICA PACK MD Sep 04, 2019 11:26
[2019-09-04 12:00] VITALS: BP_SYST 104; BP_SYST 120; BP_DIAS 67; BP_DIAS 72
[2019-09-04 16:13] VITALS: BP 107/66
[2019-09-04 20:06] VITALS: BP 97/60
[2019-09-04] MEDS ORDERED: cefTRIAXone 1,000 MG IV (ROCEPHIN) VIAL ONE (20:31)
[2019-09-04] MEDS ORDERED: WATER (STERILE) FOR INJECTION 10 ML ONE (20:31)
[2019-09-04] MEDS: MELATONIN 3 MG TABLET PO SCH (20:40)
[2019-09-04] MEDS: cefTRIAXone 1,000 MG/SWFI 10 ML IV PUSH IV SCH ×2 (20:40)
[2019-09-04] MEDS: TAMSULOSIN 0.4 MG (FLOMAX) CAP PO SCH (20:40)
[2019-09-05] VITALS: BP 108/59
[2019-09-05 04:00] VITALS: BP 115/58
[2019-09-05 06:57] LABS: HEMATOCRIT 27 % (40-54); HEMOGLOBIN 8.4 G/DL (13.3-17.7); MEAN CORPUSCULAR HEMOGLOBIN 36 PG (25-34); MEAN CORPUSCULAR HGB CONC 31 G/DL (32-36); MEAN CORPUSCULAR VOLUME 118 FL (80-99); MEAN PLATELET VOLUME 10.4 FL (7.4-10.4); RED CELL DISTRIBUTION WIDTH 17.6 % (10.0-14.5)
[2019-09-05 07:02] LABS: PLATELET COUNT 12 10^3/uL (130-400); WHITE BLOOD COUNT 65.6 10^3/uL (4.3-11.0)
[2019-09-05 07:10] LABS: ALBUMIN 3.2 GM/DL (3.2-4.5); BILIRUBIN,TOTAL 0.4 MG/DL (0.1-1.0); CALCIUM 7.8 MG/DL (8.5-10.1); CREATININE SERUM 1.64 MG/DL (0.60-1.30); POTASSIUM 4.5 MMOL/L (3.6-5.0); TOTAL PROTEIN 5.4 GM/DL (6.4-8.2)
[2019-09-05 08:00] VITALS: BP 118/59
--- NOTE | 2019-09-05 10:03 | Physical Therapy Daily Note ---
PT Daily Note-Current Subjective Patient agrees to PT. He is in bed with bed alarm activated. Mental Status Patient Orientation: Person, Time, Situation Transfers SCALE: Activities may be completed with or without assistive devices. 5-Fmzmuowzcb-zoqqnoz completes the activity by him/herself with no assistance from a helper. 5-Set-up or Clean-up Assistance-helper sets up or cleans up; patient completes activity. [place] assists only prior to or following the activity. 4-Supervision or Touching Assistance-helper provides verbal cues and/or touching/steadying and/or contact guard assistance as patient completes activity. Assistance may be provided throughout the activity or intermittently. 3-Partial/Moderate Assistance-helper does LESS THAN HALF the effort. [place] lifts, holds or supports trunk or limbs, but provides less than half the effort. 2-Substantial/Maximal Assistance-helper does MORE THAN HALF the effort. [place] lifts or holds trunk or limbs and provides more than half the effort. 7-Ullvqfcxc-bmmlty does ALL the effort. Patient does none of the effort to complete the activity. Or, the assistance of 2 or more helpers is required for the patient to complete the activity. If activity was not attempted, code reason: 7-Patient Refused. 9-Not Applicable-not attempted and the patient did not perform the activity before the current illness, exacerbation or injury. 10-Not Attempted due to Environmental Limitations-(lack of equipment, weather restraints, etc.). 88-Not Attempted due to Medical Conditions or Safety Concerns. Roll Left & Right (QC): 5 Sit to Lying (QC): 5 Lying to Sitting/Side of Bed(Q: 5 Sit to Stand (QC): 5 Weight Bearing Right Lower Extremity: Right Weight Bearing/Tolerated Left Lower Extremity: Left Weight Bearing/Tolerated Gait Training Does the Patient Walk?: Yes Distance: 600' Walk 10 feet (QC): 5 Walk 50 ft with 2 Turns(QC): 5 Walk 150 ft (QC): 5 Gait Assistive Device: FWW steady, fast pace with FWW with no deficit Assessment Patient returned to bed with 4 rails up and bed alarm activated. PT to increase activity as tolerated by patient. PT Fdc Goals Fdc Goals PT Electrical Electronics Technician Goals Time Frame: Sep 17, 2019 Roll Left & Right (QC): 6 Sit to Lying (QC): 6 Lying-Sitting on Side/Bed(QC): 6 Sit to Stand (QC): 6 Chair/Jge-rk-Cmjng Xfer(QC): 6 Toilet Transfer (QC): 6 Car Transfer (QC): 6 Walk 10 feet (QC): 6 Walk 50ft with 2 Turns (QC): 6 Walk 150 ft (QC): 6 Walking 10ft on Uneven Surface: 6 1 Step (curb) (QC): 6 PT Plan Treatment/Plan Treatment Plan: Continue Plan of Care Treatment Plan: Bed Mobility, Education, Functional Activity Gunjan, Functional Strength, Gait, Safety, Therapeutic Exercise, Transfers Treatment Duration: Sep 17, 2019 Frequency: 5 times per week Estimated Hrs Per Day: .25 hour per day Patient and/or Family Agrees t: Yes Time/GCodes Time In: 942 Time Out: 954 Total Billed Treatment Time: 12 Total Billed Treatment 1 visit FA 12 min OG TRAN PT Sep 05, 2019 10:03
--- NOTE | 2019-09-05 11:05 | NUR ---
ARU note: Referral received on 09/04 for review for ARU placement. Per ANABEL note on 09/02, patient and family had requested referral to SNF as patient will likely transition to residential care. Following review of PT notes and discussion with PT, Cira patient is ambulating 500-550ft and transferring independently. Unless OT/ST orders are warranted, patient will not meet criteria for ARU based on high level of function. Will follow with alternative disciplines are ordered. Chikis LITTLE updated. Thank you for this referral.
--- NOTE | 2019-09-05 11:25 | Oncology Progress Note ---
Subjective Date Seen by a Provider: Sep 05, 2019 Time Seen by a Provider: 11:25 Subjective/Events-last exam Cover for Dr Melvin. Pt woke from sleep today while we were discussing the possible bone marrow exam with his two daughters at his room. Pt was not alter enough to make any decision of the bone marrow exam although he said "I would like to find out all the information before I make my decision." When I further asked him about what he means "find out more information about? Is that to find out more information about the bone marrow exam procedure itself or to find out more about what is going on of the bone marrow and diagnosis of the disease?" He really could not give me an clear answer. I discussed in depth with his two daughters today about the bone marrow procedure today. They are NOT sure if it is the right thing to do at this point. They need to discuss with other 2 family members and then decide. They are not interested in chemotherapy if it is leukemia. Pt is improved somewhat from the UTI symptoms point of view. He is scheduled to be discharged to retirement tomorrow. No fever. Data Review Labs Laboratory Tests 09/05/19 06:33 Laboratory Tests 09/03/19 03:01: White Blood Count 48.5*H, Red Blood Count 2.38L, Hemoglobin 8.7L, Hematocrit 28L , Mean Corpuscular Volume 119H, Mean Corpuscular Hemoglobin 37H, Mean Corpuscular Hemoglobin Concent 31L, Red Cell Distribution Width 17.8H, Platelet Count 15*L, Mean Platelet Volume 11.4H, Prothrombin Time 16.9H, Chloride Level 108H, Carbon Dioxide Level 18L, Blood Urea Nitrogen 52H, Creatinine 1.98H, Calcium Level 7.8L, Corrected Calcium 8.4L, Total Protein 5.2L 09/03/19 12:14: Vitamin B12 Level >2000H 09/04/19 05:29: White Blood Count 58.0*H, Red Blood Count 2.41L, Hemoglobin 8.7L, Hematocrit 29L , Mean Corpuscular Volume 119H, Mean Corpuscular Hemoglobin 36H, Mean Corpuscular Hemoglobin Concent 30L, Red Cell Distribution Width 17.9H, Platelet Count 14*L, Chloride Level 109H, Blood Urea Nitrogen 46H, Creatinine 1.75H, Calcium Level 7.9L, Total Protein 5.6L 09/05/19 06:33: White Blood Count 65.6*H, Red Blood Count 2.32L, Hemoglobin 8.4L, Hematocrit 27L , Mean Corpuscular Volume 118H, Mean Corpuscular Hemoglobin 36H, Mean Corpuscular Hemoglobin Concent 31L, Red Cell Distribution Width 17.6H, Platelet Count 12*L, Blood Urea Nitrogen 43H, Creatinine 1.64H, Calcium Level 7.8L, Corrected Calcium 8.4L, Total Protein 5.4L Physical Exam Vital Signs Vital Signs - First Documented 09/01/19 09/02/19 20:30 01:30 Temp 36.4 Pulse 74 Resp 17 B/P (MAP) 99/54 (69) Pulse Ox 98 O2 Delivery Room Air O2 Flow Rate 100.00 Capillary Refill : Less Than 3 Seconds Height, Weight, BMI Height: 6'0.00" Weight: 190lbs. 9.0oz. 86.825141xl; 17.07 BMI Method:Stated General Appearance: No Apparent Distress HEENT: PERRL/EOMI Respiratory: No Accessory Muscle Use, No Respiratory Distress Gastrointestinal: Non Tender, Soft Neurologic/Psychiatric: Alert (oriented x2) Impression & Plan Impression & Plan 84 year old white man with leukocytosis and thrombocytopenia. Flowcytometry in the past showed 3% of circulating blasts. No bone marrow confirmation of diagnosis of leukemia. Pt and family still need more time to discuss and think about it. Agree to discharge to retirement at this point. Dr Melvin will be back on Thu. Pt can have f/u with Dr Melvin at cancer center. Transfuse Plt when it is below 11 or actively bleeding. Clinical Quality Measures DVT/VTE Risk/Contraindication: Risk Factor Score Per Nursin RFS Level Per Nursing on Admit: 4+=Very High ROSEMARY CRANDALL MD Sep 05, 2019 11:25
[2019-09-05 12:00] VITALS: BP 101/53
--- NOTE | 2019-09-05 12:23 | NUR ---
CM/SS follow up with discharge planning. IRF: Denied the patient based on ability. SNF: [facility] skilled, accepted. Possible discharge tomorrow or Thursday. Daphne from [facility] called this a.m. and stated the patient was accepted for a skilled placement. CM/SS had a meeting with 2 of the four daughters in the family waiting room while the patient was getting PT. Informed the daughters of patients acceptance. The patients daughters had a list of questions for this SS. CM/SS asked Soumya Valdes to assist. Soumya valdes brought them a General durable power of attorney lawyer. CM/SS answered all other questions that they had at this time. The patients family is going to fill out a Medicaid application and will talk to the SS at [facility]. The patients daughters will not be here tomorrow but available by phone (Litzy: [phone]) No other questions at this time. Will continue to follow.
--- NOTE | 2019-09-05 16:07 | Progress Note ---
Subjective Subjective/Events-last exam Patient very sleepy and falls asleep during visit. 2 of his 4 daughters are in the room this AM. Patient states that he feels better this AM. Still very weak and unable to return home. Tolerating PO diet. Review of Systems General: Fatigue, Other (Weight loss in the last month approx 40#) Pulmonary: Cough Cardiovascular: No: Chest Pain, Palpitations Gastrointestinal: No: Abdominal Pain, Diarrhea, Constipation Neurological: Weakness, Confusion Objective Exam Last Set of Vital Signs Vital Signs Date Time Temp Pulse Resp B/P (MAP) Pulse Ox O2 Delivery O2 Flow Rate FiO2 09/05/19 12:00 36.9 85 18 101/53 (69) 94 Room Air 09/02/19 09:00 100.00 Capillary Refill : Less Than 3 Seconds I&O Intake and Output 09/05/19 00:00 Intake Total 1690 ml Output Total 5 ml Balance 1685 ml Intake Oral 1690 ml Output Urine Total 5 ml # Voids 12 General: Alert, No Acute Distress Lungs: Clear to Auscultation, Normal Air Movement Heart: Regular Rate, No Murmurs Abdomen: Normal Bowel Sounds, Soft, No Tenderness, No Masses Extremities: Other (3+ pitting edema bilateral LE to knees) Skin: No Rashes, No Breakdown Results/Procedures Lab Laboratory Tests 09/05/19 06:33: White Blood Count 65.6*H, Red Blood Count 2.32L, Hemoglobin 8.4L, Hematocrit 27L , Mean Corpuscular Volume 118H, Mean Corpuscular Hemoglobin 36H, Mean Corpuscular Hemoglobin Concent 31L, Red Cell Distribution Width 17.6H, Platelet Count 12*L, Mean Platelet Volume 10.4, Neutrophils (%) (Auto) , Lymphocytes (%) (Auto) , Monocytes (%) (Auto) , Eosinophils (%) (Auto) , Basophils (%) (Auto) , Neutrophils # (Auto) , Lymphocytes # (Auto) , Monocytes # (Auto) , Eosinophils # (Auto) , Basophils # (Auto) , Sodium Level 138, Potassium Level 4.5, Chloride Level 105, Carbon Dioxide Level 23, Anion Gap 10, Blood Urea Nitrogen 43H, Creatinine 1.64H, Estimat Glomerular Filtration Rate 40, BUN/Creatinine Ratio 26, Glucose Level 97, Calcium Level 7.8L, Corrected Calcium 8.4L, Total Anup irubin 0.4, Aspartate Amino Transf (AST/SGOT) 20, Alanine Aminotransferase (ALT/SGPT) 39, Alkaline Phosphatase 94, Total Protein 5.4L, Albumin 3.2 Microbiology 09/01/19 Urine Culture - Final, Complete Klebsiella oxytoca 09/01/19 Blood Culture - Preliminary, Resulted No growth 09/01/19 Influenza Types A,B Antigen (NAIN) - Final, Complete Assessment/Plan Assessment/Plan (1) Severe sepsis Status: Acute Assessment & Plan: - Continue IVFs, IV antibiotics (2) UTI (urinary tract infection) Status: Acute Qualifiers: Qualified Codes: N30.00 - Acute cystitis without hematuria (3) Acute renal failure Status: Acute Assessment & Plan: - Gentle IV/PO hydration, Continue to monitor Cr Qualifiers: Qualified Codes: N17.9 - Acute kidney failure, unspecified (4) Altered mental state Status: Acute Assessment & Plan: - Heavy Metal pending, possible 2/2 Severe Sepsis with infection, will continue to monitor Qualifiers: Qualified Codes: R41.82 - Altered mental status, unspecified (5) Fall Status: Acute Qualifiers: Qualified Codes: W19.XXXA - Unspecified fall, initial encounter (6) Macrocytic anemia Status: Acute (7) Leg edema Status: Acute Assessment & Plan: - Echo pending (8) Leukocytosis Status: Acute Assessment & Plan: - Hem/Onc consulted and following patient, patient considering bone marrow Bx Qualifiers: Qualified Codes: D72.829 - Elevated white blood cell count, unspecified (9) Thrombocytopenia Status: Acute (10) DVT prophylaxis Status: Acute Assessment & Plan: - SCDs, Lovenox CI 2/2 to thrombocytopenia Clinical Quality Measures DVT/VTE Risk/Contraindication: Risk Factor Score Per Nursin RFS Level Per Nursing on Admit: 4+=Very High AGUILAR LOPEZ MD Sep 05, 2019 16:07
[2019-09-05 16:13] VITALS: BP 127/70
[2019-09-05] MEDS ORDERED: ACETAMINOPHEN 325 MG TABLET PO PRN (18:45)
[2019-09-05] MEDS ORDERED: cefTRIAXone 1,000 MG IV (ROCEPHIN) VIAL ONE (19:43)
[2019-09-05] MEDS ORDERED: WATER (STERILE) FOR INJECTION 10 ML ONE (19:43)
[2019-09-05] MEDS: TAMSULOSIN 0.4 MG (FLOMAX) CAP PO SCH (19:58)
[2019-09-05] MEDS: MELATONIN 3 MG TABLET PO SCH (19:58)
[2019-09-05 20:03] VITALS: BP 123/60
[2019-09-05] MEDS: cefTRIAXone 1,000 MG/SWFI 10 ML IV PUSH IV SCH ×2 (21:49)
[2019-09-06] VITALS: BP 98/58
[2019-09-06 04:19] VITALS: BP 110/58
[2019-09-06 06:25] LABS: HEMATOCRIT 30 % (40-54); MEAN CORPUSCULAR HEMOGLOBIN 36 PG (25-34); MEAN CORPUSCULAR HGB CONC 30 G/DL (32-36); MEAN CORPUSCULAR VOLUME 119 FL (80-99); MEAN PLATELET VOLUME 9.8 FL (7.4-10.4)
[2019-09-06 06:30] LABS: PLATELET COUNT 12 10^3/uL (130-400); WHITE BLOOD COUNT 72.8 10^3/uL (4.3-11.0)
[2019-09-06 06:52] LABS: ALBUMIN 3.3 GM/DL (3.2-4.5); BILIRUBIN,TOTAL 0.3 MG/DL (0.1-1.0); CALCIUM 7.8 MG/DL (8.5-10.1); CREATININE SERUM 1.75 MG/DL (0.60-1.30); POTASSIUM 4.5 MMOL/L (3.6-5.0); TOTAL PROTEIN 5.7 GM/DL (6.4-8.2)
[2019-09-06 08:00] VITALS: BP 91/64
[2019-09-06] MEDS ORDERED: cefTRIAXone FOR IV USE 1,000 MG in WATER (STERILE) FOR INJECTION 10 ML IV ONE (09:30)
--- NOTE | 2019-09-06 10:20 | NUR ---
"RD ASSESSMENT PMHx: CAD; hypercholesterolemia; gout; hypothyroidism PT INTERACTION: Pt was awake and pleasant during nutrition assessment. Note pt has AMS, per chart review. Pt states current appetite is okay, and has been for some time. Note avg PO intake of 59% x4d, per chart review. Pt states following a regular diet at home and has no issues with chewing/swallowing food. Note pt has no teeth, per visual exam. Pt states no recent issues with n/v/c/d at this time. Note last BM was 09/06 and pt not currently on bowel regimen per chart review. Pt states no recent wt changes and that his UBW is 220. Pt did not recall the last time he was at that weight. Note current wt of 124#, per chart review. Upon visual exam, pt appears cachectic with visible signs of muscle/fat wasting in the temporal region and the suborbital fat pads. Note pt has BMI of 17.4, which is classified as underweight. Though pt does not currently meet the criteria for malnutrition, pt is at risk if PO intake declines. ABNORMAL NUTRITION-RELATED LAB VALUES LOW: Ca 7.8; Pro 5.7 HIGH: BUN 44; cr 1.75 Est. kcal needs: 8985-2677 kcal | 30-35 kcal/kg Est. Pro needs: 68-79 g Pro | 1.2-1.4 g Pro/kg PES STATEMENT: Inadequate oral intake (NI-2.1) related to loss of appetite | AMS as evidenced by pt interview | avg PO intake 59% x4d Underweight (NC-3.1) related to inadequate energy intake as evidenced by decreased muscle mass (from visual exam) | BMI 17.4 | estimated intake of food less than estimated kcal needs | AMS INTERVENTION: Continue with current diet order of Regular diet. Add Ensure Enlive (vary) to meals TID, for increased kcal intake. Provides 350 kcal and 13 g Pro per serving. Will continue to follow and reassess as pt needs and status change. MONITOR/EVALUATE: PO Intake; Plan of Care; Hydration Status; Weight Status; Lab Values Kelton Turner, MS, RD, LD"
--- NOTE | 2019-09-06 11:32 | Physical Therapy Daily Note ---
PT Daily Note-Current Subjective Patient agreeable to therapy at this time. Appearance Patient in bed with call light and bedside table within reach. Mental Status Patient Orientation: Person, Normal For Age Transfers SCALE: Activities may be completed with or without assistive devices. 8-Rsyazjpvxf-rbkqpsn completes the activity by him/herself with no assistance from a helper. 5-Set-up or Clean-up Assistance-helper sets up or cleans up; patient completes activity. [place] assists only prior to or following the activity. 4-Supervision or Touching Assistance-helper provides verbal cues and/or touching/steadying and/or contact guard assistance as patient completes activity. Assistance may be provided throughout the activity or intermittently. 3-Partial/Moderate Assistance-helper does LESS THAN HALF the effort. [place] lifts, holds or supports trunk or limbs, but provides less than half the effort. 2-Substantial/Maximal Assistance-helper does MORE THAN HALF the effort. [place] lifts or holds trunk or limbs and provides more than half the effort. 5-Flevgwvgm-shtkhw does ALL the effort. Patient does none of the effort to complete the activity. Or, the assistance of 2 or more helpers is required for the patient to complete the activity. If activity was not attempted, code reason: 7-Patient Refused. 9-Not Applicable-not attempted and the patient did not perform the activity before the current illness, exacerbation or injury. 10-Not Attempted due to Environmental Limitations-(lack of equipment, weather restraints, etc.). 88-Not Attempted due to Medical Conditions or Safety Concerns. Roll Left & Right (QC): 6 Lying to Sitting/Side of Bed(Q: 6 Sit to Stand (QC): 4 Weight Bearing Right Lower Extremity: Right Weight Bearing/Tolerated Left Lower Extremity: Left Weight Bearing/Tolerated Gait Training Does the Patient Walk?: Yes Distance: 200' Walk 10 feet (QC): 4 Walk 50 ft with 2 Turns(QC): 4 Walk 150 ft (QC): 4 Gait Persons Needed: 1 Gait Assistive Device: FWW CGA to SBA for safety. Patient is steady majority of the times while ambulating. Wheelchair Training Does the Pt Use a Wheelchair?: No Treatments Bed mobility, transfers, ambulation. Assessment Current Status: Good Progress Patient fatigued quickly and due to this ceased ambulation. Patient was steady during ambulation but needed cues to keep walker close to him and to stay in his walker. PT Impregnating Machine Operator Goals Mcfp Goals PT Mcfp Goals Time Frame: Sep 17, 2019 Roll Left & Right (QC): 6 Sit to Lying (QC): 6 Lying-Sitting on Side/Bed(QC): 6 Sit to Stand (QC): 6 Chair/Car-wv-Tytjp Xfer(QC): 6 Toilet Transfer (QC): 6 Car Transfer (QC): 6 Walk 10 feet (QC): 6 Walk 50ft with 2 Turns (QC): 6 Walk 150 ft (QC): 6 Walking 10ft on Uneven Surface: 6 1 Step (curb) (QC): 6 PT Plan Problem List Problem List: Activity Tolerance, Functional Strength, Safety, Balance, Gait, Transfer, Bed Mobility Treatment/Plan Treatment Plan: Continue Plan of Care Treatment Plan: Bed Mobility, Education, Functional Activity Gunjan, Functional Strength, Gait, Safety, Therapeutic Exercise, Transfers Treatment Duration: Sep 17, 2019 Frequency: 5 times per week Estimated Hrs Per Day: .25 hour per day Patient and/or Family Agrees t: Yes Safety Risks/Education Patient Education: Gait Training, Transfer Techniques Teaching Recipient: Patient Teaching Methods: Discussion Response to Teaching: Reinforcement Needed Time/GCodes Time In: 1101 Time Out: 1111 Total Billed Treatment Time: 10 Total Billed Treatment 1 visit FA 10 OG TRAN PT Sep 06, 2019 11:32
[2019-09-06 12:00] VITALS: BP 93/66
--- NOTE | 2019-09-06 13:07 | Discharge Summary ---
Discharge Summary Reconcile Patient Problems Problems Reviewed?: Yes Hospital Course Hospital Course Date of Admission: Sep 01, 2019 at 23:45 Admission Diagnosis : Family Physician/Provider: Salvador Gonzalez MD Date of Discharge: 09/06/19 Discharge Diagnosis: Severe Sepsis Urinary Tract Infection Leukocytosis Thrombocytopenia Macrocytic Anemia Hospital Course: 84 yo M who was admitted for altered mental status found to have elevated WBC in the 60,000 and UTI. Patient was started on IVF and IV antibiotics and WBC trended down to 52,000 and then has been trending up. Hematology/Onc was consulted and recommend a bone marrow biopsy which can be done as an outpatient. Patient has a heavy metal screen pending. An Echo was done due to LE swelling that show mild decrease in LV function with EF 40-45%. Patient will have close f.u as outpatient for oncology workup but at this time he is not sure how much workup he is desiring. Labs and Pending Lab Test: Laboratory Tests 09/06/19 05:57: White Blood Count 72.8*H, Red Blood Count 2.51L, Hemoglobin 9.0L, Hematocrit 30L , Mean Corpuscular Volume 119H, Mean Corpuscular Hemoglobin 36H, Mean Corpuscular Hemoglobin Concent 30L, Red Cell Distribution Width 18.0H, Platelet Count 12*L, Mean Platelet Volume 9.8, Neutrophils (%) (Auto) , Lymphocytes (%) (Auto) , Monocytes (%) (Auto) , Eosinophils (%) (Auto) , Basophils (%) (Auto) , Neutrophils # (Auto) , Lymphocytes # (Auto) , Monocytes # (Auto) , Eosinophils # (Auto) , Basophils # (Auto) , Sodium Level 137, Potassium Level 4.5, Chloride Level 105, Carbon Dioxide Level 20L, Anion Gap 12, Blood Urea Nitrogen 44H, Creatinine 1.75H, Estimat Glomerular Filtration Rate 37, BUN/Creatinine Ratio 25, Glucose Level 89, Calcium Level 7.8L, Corrected Calcium 8.4L, Total Bilirubin 0.3, Aspartate Amino Transf (AST/SGOT) 31, Alanine Aminotransferase (ALT/SGPT) 45, Alkaline Phosphatase 108, Total Protein 5.7L, Albumin 3.3 Microbiology 09/01/19 Urine Culture - Final, Complete Klebsiella oxytoca 09/01/19 Blood Culture - Preliminary, Resulted No growth 09/01/19 Influenza Types A,B Antigen (NAIN) - Final, Complete Home Meds Active Reported Tylenol Extra Strength (Acetaminophen) 500 Mg Tablet 500-1,000 Mg PO Q4H PRN Melatonin 5 Mg Tablet 5 Mg PO HS Flomax (Tamsulosin HCl) 0.4 Mg Cap 0.4 Mg PO HS LAST FILLED #30 05-24-19 Instructions to Patient/Family Assessment/Instructions - Discussed the need for f.u with Oncology if they desire further workup - Discussed Hospice care Follow Up Appt.: Dr Muñoz/Kate Pruett will see you in the facility Skilled NF Admit to: [facility] Certification (SNF) I certify that SNF services are required to be given on an inpatient basis because of the above named patient's need for fpc care on a continuing basis for the conditions(s) for which he/she was receiving inpatient hospital services prior to his/her transfer to the SNF. [facility] Facility Order: Nursing Services, Settlement Worker-Evaluate & Treat, Physical Therapy-Evaluate & Treat Oxygen Delivery Method: Room Air Discharge Diet: Soft Diet Daily Activity as Tolerated: Yes Resuscitation Status: Do Not Resuscitate Aguilar Loepz Sep 06, 2019 12:59 Pneu Vac Indicated: Yes Discharge Physical Exam General: Alert, Oriented X3, Cooperative, No Acute Distress, Other (Thin and Cachetic) HEENT: Other (Pale MM) Heart: Regular Rate, No Murmurs Abdomen: Normal Bowel Sounds, Soft, No Tenderness, No Masses Extremities: Other (3+ pitting edema) Neuro: Sensation Intact, Cranial Nerves 3-12 NL AGUILAR LOPEZ MD Sep 06, 2019 13:04
--- NOTE | 2019-09-06 13:24 | NUR ---
This RN called report to dulce at [facility]. staff stated they would be here to pick him up around 2pm 09/06/19
[2019-09-06 14:25] VITALS: BP 93/66
--- NOTE | 2019-09-06 15:52 | NUR ---
CM/SS to finalize discharge plans. Plan: The patient will discharge to [facility] today skilled. The finalized discharge orders were faxed to the facility. Daphne from [facility] verbalized that they received orders and care assessment. Facility stated the strip picker time would be 2 p.m. A care assessment was completed, signed, and faxed to [facility] and [facility]. The patients daughter was present to help with transition into the facility. They did not have any other needs at time of discharge.
== END 2019-09-06 14:25 | DRG 872 ==
LOC: EDUNIT# 20:14 → ER 20:15 → ICU 23:45 → 4TH 09-03 14:02
PROVIDERS: ADMIT Family Medicine; ATTEND Family Medicine
DX: A41.9 Sepsis, unspecified organism (principal); R65.20 Severe sepsis without septic shock; N39.0 Urinary tract infection, site not specified; N17.9 Acute kidney failure, unspecified; E87.2 Acidosis; C94.6 Myelodysplastic disease, not elsewhere classified; R44.3 Hallucinations, unspecified; D69.6 Thrombocytopenia, unspecified; Z66 Do not resuscitate; I25.10 Atherosclerotic heart disease of native coronary artery without angina pectoris; R33.9 Retention of urine, unspecified; R39.11 Hesitancy of micturition; N28.9 Disorder of kidney and ureter, unspecified; M54.9 Dorsalgia, unspecified; F03.90 Unspecified dementia, unspecified severity, without behavioral disturbance, psychotic disturbance, mood disturbance, and anxiety; E78.5 Hyperlipidemia, unspecified; E03.9 Hypothyroidism, unspecified; I48.91 Unspecified atrial fibrillation; B35.1 Tinea unguium; M10.9 Gout, unspecified; R63.4 Abnormal weight loss; D53.9 Nutritional anemia, unspecified; R60.0 Localized edema; H91.90 Unspecified hearing loss, unspecified ear; Z91.81 History of falling; Z87.19 Personal history of other diseases of the digestive system; Z91.14 Patient's other noncompliance with medication regimen
CPT/HCPCS: 36415; 51702; 70450; 71045; 72125; 80053; 81000; 81270; 82175; 82607; 83605; 83655; 83825; 85007; 85025; 85027; 85045; 85610; 85730; 87040; 87077; 87088; 87186; 87804; 93005; 93306; 96361; 96374

== ENCOUNTER 2019-09-14 10:25 | Outpatient (RCR) | payer MEDICARE, OTHER ==
[2019-09-14 11:19] LABS: HEMATOCRIT 26 % (40-54); HEMOGLOBIN 8.1 G/DL (13.3-17.7); MEAN CORPUSCULAR HEMOGLOBIN 37 PG (25-34); MEAN CORPUSCULAR HGB CONC 31 G/DL (32-36); MEAN CORPUSCULAR VOLUME 120 FL (80-99); MEAN PLATELET VOLUME 8.7 FL (7.4-10.4); RED CELL DISTRIBUTION WIDTH 18.5 % (10.0-14.5)
[2019-09-14 11:27] LABS: PLATELET COUNT 3 10^3/uL (130-400); WHITE BLOOD COUNT 119.1 10^3/uL (4.3-11.0)
[2019-09-14 11:32] LABS: ALBUMIN 3.4 GM/DL (3.2-4.5); BILIRUBIN,TOTAL 0.8 MG/DL (0.1-1.0); CALCIUM 7.6 MG/DL (8.5-10.1); CREATININE SERUM 2.17 MG/DL (0.60-1.30); POTASSIUM 4.7 MMOL/L (3.6-5.0)
[2019-09-14] MEDS ORDERED: NS (IVPB) CANCER CENTER 250 ML ONE (14:03)
== END 2019-12-13 | disposition home or self-care (01) ==
LOC: ONC 10:25
PROVIDERS: ATTEND Internal Medicine Hematology & Oncology
DX: D72.829 Elevated white blood cell count, unspecified (principal); D69.6 Thrombocytopenia, unspecified; D64.9 Anemia, unspecified; R06.02 Shortness of breath; R05 Cough; E78.5 Hyperlipidemia, unspecified; N28.9 Disorder of kidney and ureter, unspecified; M10.9 Gout, unspecified; Z86.010 Personal history of colon polyps; Z87.891 Personal history of nicotine dependence
CPT/HCPCS: 36415; 36430; 70450; 71046; 80053; 85025; 86900; 86901

== ENCOUNTER → 2019-09-14 | Outpatient (CLI) | payer MEDICARE, OTHER ==
[~2019-09-14] MED LIST changes: +ACET-2267 PO; +MELA5TAB14 PO; +TMSL.4C PO
--- NOTE | 2019-09-14 12:57 | Diagnostic Imaging Report ---
INDICATION: Altered mental status. TECHNIQUE: Routine non contrast-enhanced axial images were obtained from the skull base to the vertex. Auto Exposure Controls were utilized during the CT exam to meet ALARA standards for radiation dose reduction COMPARISON: 09/01/2019 FINDINGS: The ventricles and cortical sulci are diffusely prominent, compatible with age-related volume loss. There are confluent areas of abnormal, low attenuation in the periventricular white matter. This is consistent with chronic small vessel ischemic changes. There is no midline shift or mass-effect. No acute intra-axial hemorrhage is seen. There are no abnormal areas of increased or decreased density to suggest acute hemorrhage or edema. No extra-axial masses or collections are present. The bony calvarium is intact. The visualized paranasal sinuses are unremarkable. The mastoid air cells are clear. IMPRESSION: 1. No acute intracranial abnormality. No CT evidence of mass, acute infarct or intracranial hemorrhage. 2. Chronic small vessel ischemic changes in the deep white matter. Dictated by: Dictated on workstation # [id number]
--- NOTE | 2019-09-14 13:07 | Diagnostic Imaging Report ---
INDICATION: Mental status alteration. TECHNIQUE: Two view chest at 12:38 PM. CORRELATION STUDY: 09/01/2019. FINDINGS: The heart size is enlarged. The mediastinum is prominent. The vasculature is slightly increased. Blunting of the costophrenic angles is consistent with small pleural effusions. Prominent interstitial markings but without consolidating infiltrate. May be minimal basilar atelectasis. There is accentuated kyphosis with a vertebral plana of a mid thoracic vertebral body. IMPRESSION: Small pleural effusions. Cardiac enlargement. Mild vascular congestion. Dictated by: Dictated on workstation # [id number]
== END ==
LOC: RAD 12:02
PROVIDERS: ATTEND Internal Medicine Hematology & Oncology
DX: I67.82 Cerebral ischemia (principal); J90 Pleural effusion, not elsewhere classified; I51.7 Cardiomegaly; R09.89 Other specified symptoms and signs involving the circulatory and respiratory systems; R41.82 Altered mental status, unspecified
CPT/HCPCS: 70450; 71046; 86900; 86901